=== PATIENT | female | born 1990 | race Caucasian/White ===

== ENCOUNTER → 2021-04-23 10:09 | Outpatient (CLI) | payer OTHER, SELFPAY ==
--- NOTE | ~2021-04-23 | US_ITS ---
US OB /maternal detail DATE: 04/23/2021 10:44 INDICATION: anatomy screen TECHNIQUE: Real-time imaging and Doppler analysis COMPARISON: None FINDINGS: Live single intrauterine gestation, fetus in vertex presentation, longitudinal lie. Anterior placenta, lower margin 4.4 cm above the internal os. Subjectively normal amount of amniotic fluid. No cerebral ventriculomegaly. The cerebellum, cisterna magna and nuchal fold appear gabe l. Upper lip appears normal. spine appears normal. Four-chamber heart with heart ra te of 157 bpm. Outflow tracts were not demonstrated due to position. diaphragm is intact. Fluid is demonstrated in the stomach and urinary bladder. kidn eys are unremarkable, without hydronephrosis. Three-vessel umbilical cord with normal insertion at abdominal wall. extremities are unremarkable. Biparietal diameter 4.52 cm; 19 weeks 5 days Head circumference 16.76 cm; 19 weeks 3 days Abdominal circumference 14.46 cm; 19 weeks 5 days Femur length 3.19 cm; 19 weeks 6 days Composite age by Hadlock formula is 19 weeks 5 days +/- 1 week 3 days; JAMES 09/22/2021 Estimated weight is 313.6 +/- 47 g. Head circumference/abdominal charge entry clerk was 1.16, within normal range of 1.0-1.26 Femur length/head circumference 19.01, within normal range of 16.60-19.37. IMPRESSION: Estimated gestational age of 19 weeks 5 days +/- 1 week 3 days; JAMES: 09/22/2021 Normal anatomy screen Reviewed, dictated and finalized at [facility]. Reviewed, dictated and finalized at [facility]. IMPRESSION: Estimated gestational age of 19 weeks 5 days +/- 1 week 3 days; JAMES : 09/22/2021 Normal anatomy screen
== END ==
PROVIDERS: Visit Provider Obstetrics & Gynecology Gynecology
DX: Z36.9 Encounter for antenatal screening, unspecified (principal); Z3A.19 19 weeks gestation of pregnancy
CPT/HCPCS: 76805

== ENCOUNTER 2021-09-09 08:07 | Inpatient (IN) | payer OTHER, SELFPAY ==
[2021-09-09] VITALS (152 sets, daily range): BP systolic 93–148; BP diastolic 20–110; PULSE 64–109; RESP 18; TEMP 36.9–37.9; O2SAT 99–100; BMI 30.8
--- NOTE | 2021-09-09 09:05 | LDADM ---
This patient, Stacey Kinney, was admitted to Labor/Delivery/Recovery 107 on 09/09/21 at 08:07. Plans for labor, pain management and were discussed with patient. Patient/family oriented to hospital policies and general routines including ID bracelet, bed and alarms, visiting hours, pain management, procedures, bathroom and other care routines, personal items, smoking policy, room service/diet and guest tray routines, security routines, and visiting hours. Patient/Family are encouraged to report perceived risks to care and to ask questions if they do not understand what they are told or what they should do. See OBIX for further documentation.
[2021-09-09 09:23] LABS: Basophils Percent Auto 0.5 % (0.2-1.2); Eosinophils Percent Auto 0.4 % (0-4.4); Hemoglobin 13.7 g/dL (12.0-15.0); Immature Granulocyte Percent A 1.2 % (0-0.5); Lymphocytes Absolute Auto 1.53 K/mm3 (0.9-3.2); Lymphocytes Percent Auto 18.1 % (18.3-44.2); Mean Corpuscular HGB Conc 35.1 g/dl (32-36); Mean Corpuscular Hemoglobin 35.1 pg (26-34); Mean Platelet Volume 10.9 fl (7.4-10.4); Monocytes Absolute Auto 0.6 K/mm3 (0.1-0.6); Monocytes Percent Auto 6.9 % (2.6-8.5); Neutrophils Absolute Auto 6.2 K/mm3 (1.3-6.7); Neutrophils Percent Auto 72.9 % (45.5-73.1); Platelet Count Result 159 k/mm3 (150-375); Red Cell Distribution Width 12.9 % (11.5-14.5); White Blood Count 8.5 K/mm3 (4.5-10.0)
[2021-09-09] MEDS: LACTATED RINGERS 1,000 ML 125 ML IV CONT ×3 (09:50→20:36)
[2021-09-09] MEDS: OXYTOCIN 30 UNITS/NS 500 ML 30 UNITS/500 ML BAG 4 UNITS IV CONT (09:52)
[2021-09-09 13:58] LABS: Rapid Plasma Reagin Non-Reactive (NonReactive)
--- NOTE | 2021-09-09 17:21 | WPDANESEPPF ---
Anes - Initial Pre Proc Eval Date/Time: 09/09/21 17:21 Surgeon: Lizz Meier MD Pre Op Diagnosis: Leaking Patient Data Age: 31 Gender: F Height: 1.65 m Weight: 84 kg Last Vital Signs Temp 37.3 C 09/09/21 16:12 Pulse 72 09/09/21 17:16 BP 124/70 09/09/21 17:16 Pulse Ox 100 09/09/21 17:18 Allergies Allergy/AdvReac Type Severity Reaction Status Date / Time No Known Allergies Allergy Mild Verified 11/17/10 05:12 Home Medications Medication Instructions Recorded Confirmed Type cholecalciferol (vitamin D3) 50 50 mcg PO DAILY 12/31/19 09/09/21 History mcg (2,000 unit) capsule cyanocobalamin (vitamin B-12) 1,000 mcg PO DAILY 12/31/19 09/09/21 History 1,000 mcg tablet prenat.vits,yonatan,lnu-cibb-xgala 1 tablet PO DAILY 12/15/20 09/09/21 History valacyclovir [Valtrex] 500 mg PO DAILY 08/21/21 08/21/21 History Laboratory Tests 09/09/21 09/09/21 09/09/21 08:52 08:52 08:52 WBC 8.5 K/mm3 K/mm3 (4.5-10.0) RBC 3.90 M/mm3 L M/mm3 (4.2-5.4) Hgb 13.7 g/dL g/dL (12.0-15.0) Hct 39.0 % % (37.0-47.0) MCV 100.0 fl fl (80-100) MCH 35.1 pg H pg (26-34) MCHC 35.1 g/dl g/dl (32-36) RDW 12.9 % % (11.5-14.5) Plt Count 159 k/mm3 k/mm3 (150-375) MPV 10.9 fl H fl (7.4-10.4) Immature Gran % (Auto) 1.2 % H % (0-0.5) Neut % (Auto) 72.9 % % (45.5-73.1) Lymph % (Auto) 18.1 % L % (18.3-44.2) Luce % (Auto) 6.9 % % (2.6-8.5) Eos % (Auto) 0.4 % % (0-4.4) Baso % (Auto) 0.5 % % (0.2-1.2) Lymph # (Auto) 1.53 K/mm3 K/mm3 (0.9-3.2) Luce # (Auto) 0.6 K/mm3 K/mm3 (0.1-0.6) Eos # (Auto) 0.0 K/mm3 K/mm3 (0-0.3) Baso # (Auto) 0.0 K/mm3 K/mm3 (0.0-0.1) Abs Immat Gran (auto) 0.10 K/mm3 H K/mm3 (0.00-0.031) Absolute Neuts (auto) 6.2 K/mm3 K/mm3 (1.3-6.7) Absolute Nucleated RBC 0.0 K/mm3 K/mm3 (0.0-0.012) Nucleated RBC % 0.0 % % (0.0-0.2) RPR Non-reactive (NonReactive) Blood Type O Positive Antibody Screen Negative Patient hx anesthesia problems: none Family hx anesthesia problems: none Results Review: All pre-operative results and documents have been reviewed as part of the pre-operative evaluation. [facility], [facility] Past Medical History Medical History (Updated 07/20/21 @ 11:00 by Eliel Wray MD) Acne vulgaris Acute non-recurrent maxillary sinusitis Anxiety Arthritis Chronic anxiety Chronic neck pain Exposure to COVID-19 virus Headache Tension headache, chronic Vitamin B12 deficiency anemia Vitamin D deficiency, unspecified Surgical History Surgical History (Updated 12/31/19 @ 08:31 by Paulette Nicole MA) H/O breast augmentation (~2011) Family History Family History Mother Chronic pain Father Skin cancer Grandparent Liver cancer Grandparent Malignant neoplasm of prostate Social History Social History (Updated 12/31/19 @ 08:34 by Paulette Nicole MA) Smoking status: Never smoker Second hand tobacco smoke exposure: No Alcohol intake: current Drinks per week: 3 Alcohol use details: wine/beer Substance use: never Substance use type: does not use Spiritual care concerns: No Anes - Eval Final PreProcedure Day of Procedure 09/09/21 17:21 Patient weight: obese Heart: regular rate and rhythm Lungs: clear to auscultation and normal air movement Airway: Mallampati scale class II Neurological: alert and oriented Last oral intake: >/= 8 hours ASA classification: II Emergent: no Anesthetic plan: proceed Anesthesia type and monitoring: regional epidural Results Review: All pre-operative results and documents have been reviewed as part of the pre-operative evaluation. Informed Con
[2021-09-09] MEDS: AMPICILLIN 2 GM/NS 100 ML 2 GM/100 ML BAG IVPB (20:48)
[2021-09-10] VITALS (33 sets, daily range): BP systolic 105–137; BP diastolic 53–112; PULSE 59–83; RESP 18–20; TEMP 36.8–37.2; O2SAT 100
--- NOTE | 2021-09-10 01:58 | PM.OBPRVD ---
OB - Delivery Note Procedure Delivery date: 09/10/21 Procedure: events: Labor Augmentation and Prolonged Rupture of Membrane Intrapartal events: None Delivery augmentation: pitocin Delivery monitor: external FHT and external uterine Route of delivery: Laceration Description: Periurethral and Perineal - 2nd Degree Delivery repair: vicryl (3-0 and 4-0 vicryl) Specimen: Yes (placenta) Quantitative Blood Loss (ml): 125 Anesthesia type: Epidural Disposition: floor Baby Date of : 09/10/21 Weeks of gestation at delivery: 39 Infant gender: Male presentation: vertex position: Right Occiput Anterior Placenta delivery description: Spontaneous cord vessel description: Nuchal Cord score one minute: 8 score five minutes: 9
--- NOTE | 2021-09-10 02:00 | PM.OBDSVD ---
DS: Admitting Diagnosis Discharge Date 09/11/21 Admitting Diagnosis SROM at 39 wk DS: Discharge Diagnosis Discharge Diagnosis (1) (normal spontaneous vaginal delivery): Code(s): O80 - Encounter for full-term uncomplicated delivery Status: Acute OB - DS: Summary OB Procedures : Ultrasound OB Procedures Intrapartum: Spontaneous Vag Delivery OB Procedures: : None Peripartum Data Infant Delivery Method: Natural Vaginal Laceration Description: Periurethral and Perineal - 2nd Degree complications: none Status at Discharge Functional status at discharge: independent ambulation Overall status at discharge: patient is progressing back to baseline Time Spent with Patient Time attestation: Total time spent providing and/or coordinating discharge services: DS: Data Data Completed and Pending Labs on day of discharge: Labs from last 24 hours 09/09/21 09/09/21 09/09/21 08:52 08:52 08:52 WBC 8.5 RBC 3.90 L Hgb 13.7 Hct 39.0 MCV 100.0 MCH 35.1 H MCHC 35.1 RDW 12.9 Plt Count 159 MPV 10.9 H Immature Gran % (Auto) 1.2 H Neut % (Auto) 72.9 Lymph % (Auto) 18.1 L Pike % (Auto) 6.9 Eos % (Auto) 0.4 Baso % (Auto) 0.5 Lymph # (Auto) 1.53 Pike # (Auto) 0.6 Eos # (Auto) 0.0 Baso # (Auto) 0.0 Abs Immat Gran (auto) 0.10 H Absolute Neuts (auto) 6.2 Absolute Nucleated RBC 0.0 Nucleated RBC % 0.0 RPR Non-reactive Blood Type O Positive Antibody Screen Negative Discharge Plan Discharge Attending physician on discharge: Lizz Meier Discharging Clinician: Khai Garcia Anticipated Discharge Date/Time: 09/11/21 02:01 Patient Disposition: Home, Self-Care Activity: may shower and pelvic rest Diet: regular Discharge Instructions: Education: Mom and Baby Guide Given to: Mother Follow-Up: Call your delivering provider's office for an appointment to be seen in: 6 Weeks Mom and [facility] the follow-up appointment. Appointment Date/Time: June 13, 2022 at 9:00 am What to expect at your follow-up visit: Physical Assessment Call [phone] if you are unable to keep your appointment time. BREAST CARE: * Wear a snug supportive bra. * For engorgement discomfort: Breast Feeding: * Apply warm moist washcloths * Express milk as needed to relieve engorgement * Wear loose clothing Bottle Feeding: * May apply ice packs * For sore nipples: * Identify correct latch-on * Apply warm moist washcloths before and after nursing * Air dry nipples after nursing * May apply Lansinoh cream to nipples EPISIOTOMY/PERINEAL CARE: * Until bleeding stops, use your abdi bottle after urinating * Change your pad frequently throughout the day * You may take sitz baths several times a day (fill your bathtub with warm water and soak for 20 minutes.) Do NOT bathe in the water * No tub baths until seen by your physician - You may shower ACTIVITY: * Rest as much as possible. * Do not exercise or lift anything heavier than your baby (such as laundry or other children.) * Avoid stairs or driving as much as possible. * Do not put anything into the vagina. No douching, tampons, or sexual activity until seen by physician. NOTIFY PHYSICIAN IF YOU HAVE ANY QUESTIONS OR IF ANY OF THE FOLLOWING SYMPTOMS OCCUR: * If your episiotomy or incision becomes red, swollen, or more painful than what you have experienced in the hospital. * If your vaginal bleeding becomes foul smelling. * If your vaginal bleeding becomes more heavy than a period or if your bleeding changes from pink to bright red. However, you may pass an occasional walnut-sized clot once or twice for the first week . * If you experience a sharp, shooting pain in you calves. * If you discover a hard, redde
[2021-09-10] MEDS: OXYTOCIN 30 UNITS/NS 500 ML 30 UNITS/500 ML BAG 125 UNITS IV CONT (02:20)
[2021-09-10] MEDS: IBUPROFEN 600 MG TABLET PO ×2 (03:25→11:52)
--- NOTE | 2021-09-10 04:52 | OBPPTRN ---
Patient transferred to post room #285 via wheelchair. Support person present. Oriented to unit, room, information board, rooming in, admission packet and security measures. Patient verbalizes understanding.
--- NOTE | 2021-09-10 11:25 | PC.NURSE ---
[id number] - Consulted with patient, reviewed infant feeding cues, frequencies, duration of feedings, feeding elimination flow sheet, and signs of adequate intake. Demonstrated stimulation techniques to wake infant for feeding. Assisted with infant to breast. Reviewed positioning/alignment, holding breast, asymmetrical latch on with a nipple shield due to ineffective latch with flat nipples. was able to latch correctly. Infant nursed eagerly, and with steady draws. Plan discussed to set up pumping every 3 hours. Nipple care reviewed. Pt has a plan to try to breastfeed but will be mostly pumping and feeding along with introducing formula for going back to work. Instructed mother to call out for RN assistance if she is unable to latch infant for feeding, she has discomfort with nursing and ready to be set up pumping. Instructed feeding should be initiated three hours from start of last feeding or if feeding cues are noted before. Mother voiced understanding of information shared.
[2021-09-10] MEDS: MULTIVIT/MIN/PREN/FOL AC/IRON TABLET 1 TAB PO (11:53)
[2021-09-11 00:02] VITALS: BP 112/68; PULSE 74; RESP 18; TEMP 36.7
--- NOTE | 2021-09-11 03:45 | PC.NURSE ---
Ambulated to Level II Nursery to visit .
[2021-09-11] MEDS: IBUPROFEN 600 MG TABLET PO (03:56)
[2021-09-11] MEDS: ACETAMINOPHEN 325 MG TABLET 650 MG PO (03:56)
[2021-09-11 04:18] LABS: Hematocrit 33.1 % (37.0-47.0); Hemoglobin 11.6 g/dL (12.0-15.0)
[2021-09-11 07:32] VITALS: BP 98/64; PULSE 76; RESP 16; TEMP 36.8; O2SAT 98
--- NOTE | 2021-09-11 08:51 | WPDANLDPN2 ---
Anes-Prog Note L&D Date/Time: 09/11/21 08:51 Comfortable throughout: labor and delivery Neuraxial method: epidural Epidural/Spinal procedure site: clean & non-tender Neuro status: Neuro function grossly intact. Cardiovascular status: normal Respiratory status: normal Airway patency: baseline Mental status: baseline Post-Op hydration status: normal Vital Signs: Last Vital Signs Temp 98.2 F 09/11/21 07:32 Pulse 76 09/11/21 07:32 Resp 16 09/11/21 07:32 BP 98/64 L 09/11/21 07:32 Pulse Ox 98 09/11/21 07:32 Pain score (VAS): 0 Post-procedural complaints: none Patient feedback: Patient satisfied with anesthetic care.
--- NOTE | 2021-09-11 09:37 | PM.OBDSVD ---
DS: Admitting Diagnosis Discharge Date 09/11/2021 Admitting Diagnosis OB - DS: Summary OB Procedures : None OB Procedures Intrapartum: Spontaneous Vag Delivery OB Procedures: : None Time Spent with Patient Time attestation: Total time spent providing and/or coordinating discharge services: DS: Data Data Completed and Pending Pending studies at discharge: Pending at discharge 09/10/21 01:40 Surgical [PTH] Routine Labs on day of discharge: Labs from last 24 hours 09/11/21 03:43 Hgb 11.6 L Hct 33.1 L Discharge Plan Discharge Attending physician on discharge: Lizz Meier Discharging Clinician: Khai Garcia Anticipated Discharge Date/Time: 09/11/21 02:01 Patient Disposition: Home, Self-Care Activity: may shower and pelvic rest Diet: regular Patient Instructions: Antibiotic Form Stand Alone Forms: General Discharge Information Follow-up/Referrals: Lizz Meier MD [Physician] - 6 Weeks Discharge Medications: New ibuprofen 600 mg Tablet 600 mg PO Q6H PRN (Reason: Cramping) Qty: 30 RF: 0 Continued cholecalciferol (vitamin D3) 50 mcg (2,000 unit) capsule 50 mcg PO DAILY RF: 0 cyanocobalamin (vitamin B-12) 1,000 mcg tablet 1,000 mcg PO DAILY RF: 0 prenat.vits,yonatan,lic-mbjk-cmwph Tablet 1 tablet PO DAILY RF: 0 valacyclovir [Valtrex] 500 mg Tablet 500 mg PO DAILY RF: 0 Date of admission: 09/09/21 08:07 Primary Care Provider: Eliel Wray Admitting Provider: Lizz Meier Attending physician on admission: Lizz Meier Condition: Stable
[2021-09-13 09:12] VITALS: BP 117/84; PULSE 91; RESP 20; TEMP 36.9; O2SAT 100
== END 2021-09-11 10:43 | disposition home or self-care (01) | DRG 806 ==
LOC: ANHLDR 09-14 07:34 → ANHOB2 09-14 07:34
PROVIDERS: Admitting Provider Obstetrics & Gynecology Gynecology; PCP Family Medicine; Visit Provider Obstetrics & Gynecology
DX: O42.92 Full-term premature rupture of membranes, unspecified as to length of time between rupture and onset of labor (principal); O98.52 Other viral diseases complicating childbirth; Z37.0 Single live birth; Z3A.39 39 weeks gestation of pregnancy; O36.8330 Maternal care for abnormalities of the fetal heart rate or rhythm, third trimester, not applicable or unspecified; O70.1 Second degree perineal laceration during delivery; O69.81X0 Labor and delivery complicated by cord around neck, without compression, not applicable or unspecified; O71.82 Other specified trauma to perineum and vulva; B00.9 Herpesviral infection, unspecified
CPT/HCPCS: 36415; 84112; 85014; 85018; 85025; 86592; 86850; 86900; 86901; 88307; A9270; J0131; J0290; J2590; J2795; J7120

== ENCOUNTER 2023-05-03 15:38 | Emergency (ER) | payer OTHER, SELFPAY ==
[2023-05-03 15:46] VITALS: BP 128/81; PULSE 53; RESP 16; TEMP 36.7; O2SAT 100
--- NOTE | 2023-05-03 16:10 | ED.URI ---
HPI - URI/Sore Throat General Chief Complaint: Upper Respiratory Infection Stated Complaint: Sore Throat,Congestion,Headache Time Seen by Provider: 05/03/23 16:10 History of Present Illness HPI Narrative: 32-year-old female presented for complaint of sore throat headache since yesterday. Denies cough, shortness of breath, wheezing nausea vomiting, diarrhea, fevers or chills. 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 She took Advil this morning for the headache pain. Related Data Home Medications Medication Instructions Recorded Confirmed sertraline 25 mg tablet 25 mg PO DAILY 02/13/23 05/03/23 levonorgestrel 21 mcg/24 hours (8 See Rx Instructions .Route .COMPLEX 05/03/23 05/03/23 yrs) 52 mg intrauterine device (Mirena) Allergies Allergy/AdvReac Type Severity Reaction Status Date / Time No Known Allergies Allergy Mild Verified 05/03/23 15:40 Review of Systems Review of Systems: CONSTITUTIONAL: Denies body aches, fever, chills, or sweats. EYES: Denies visual changes, redness, or discharge. ENT: Reports sore throat denies rhinorrhea, congestion, or otalgia. CARDIOVASCULAR: Denies chest pain, palpitations, or edema. RESPIRATORY: Denies dyspnea. GASTROINTESTINAL: Denies abdominal pain, nausea, vomiting, or diarrhea. SKIN: Denies rash, itching, or wounds. MUSCULOSKELETAL: Denies back pain, joint pain, or myalgia. NEUROLOGIC: Reports headache PMFSH Past Medical History Medical History Acne vulgaris Acute non-recurrent maxillary sinusitis Anxiety Arthritis Chronic anxiety Chronic neck pain Exposure to COVID-19 virus Headache Tension headache, chronic Vitamin B12 deficiency anemia Vitamin D deficiency, unspecified Surgical History Surgical History H/O breast augmentation (~2011) Family History Family History Mother Chronic pain Father Skin cancer Grandparent Liver cancer Grandparent Malignant neoplasm of prostate Social History Social History Smoking status: Never smoker Second hand tobacco smoke exposure: No Alcohol intake: current Alcohol use details: Socially Substance use: never Substance use type: does not use Lack of Transportation: No Lack of Food: Never True Current Housing: I Have Housing Concerned About Future Housing: No Difficulty Paying Gas/Electric Bills: No Difficulty Paying for Meds: No Currently Unemployed: No Education: Master's Degree or Higher Difficulty w/ Childcare or Family Care: No Spiritual care concerns: No Exam Narrative: GENERAL: well-appearing, no acute distress. EYES: conjunctivae clear ENT: Mucous membranes moist. TM pearly reyes with normal light reflex bilaterally; no tragal tenderness. Oropharynx erythematous without lesions. Tonsils enlarged 1+ and without exudate. No drooling, no hoarseness, no trismus, uvula midline. No tripod positioning, hot potato voice, or soft palate swelling. NECK: Supple. No lymphadenopathy CHEST: Clear to auscultation, breath sounds equal. No respiratory distress, speaks in full sentences. HEART: Regular rate and rhythm. No murmur heard. SKIN: Warm, dry, no rash. NEURO: Alert and oriented x3. Course Course Emergency Course: Patient is aware of diagnosis, understands and agrees to treatment plan. Anticipatory guidance given. Patient agrees to follow-up as directed and is aware of reasons to seek care at the emergency department. Portions of this record may have been created with voice recognition software Level of Care: Express Care Visit Vital Signs Vital signs: Vital Signs Temperature 98.1 F 05/03/23 15:46 Pulse Rate 53 L 05/03/23 15:46 Respiratory Rate 16 05/03/23 15:46 Blood Pressure 128/81
== END 2023-05-03 16:16 | disposition home or self-care (01) ==
PROVIDERS: Emergency Provider Nurse Practitioner Family; PCP Family Medicine
DX: B34.9 Viral infection, unspecified (principal); M19.90 Unspecified osteoarthritis, unspecified site; F41.9 Anxiety disorder, unspecified
CPT/HCPCS: 87081; 87880; 99213; G0463

== ENCOUNTER 2025-03-04 09:19 | Outpatient (CLI) | payer BC, SELFPAY ==
--- NOTE | ~2025-03-04 | CT_ITS ---
CT sinus wo con Ordering provider: David Cardenas MD History: . J30.2 - Other seasonal allergic rhinitis . Comparison: None. Technique: Thin slice Scans CT of the paranasal sinuses was performed with coronal and sagittal refor matted images. No IV contrast. . Automated exposure control and iterative reconstruction technique w ere employed. The dose-length product was 265.85 mGy-cm. Findings: NASAL SEPTUM: Mild right nasal septal deviation. OSTEOMEATAL UNITS: Bilaterally patent. NASAL TURBINATES AND NASOPHARYNX: Normal. Bilateral jan bullosa bullosa of the middle turbinates. PARANASAL SINUSES: Well aerated. VISUALIZED MASTOIDS: Normal as visualized. BONES: Normal. SUPERFICIAL SOFT TISSUES/VISUALIZED BRAIN PARENCHYMA: Normal. IMPRESSION: Mild right nasal septal deviation. Other appearances are unremarkable. Reviewed, dictated and finalized at location [facility].
== END 2025-03-04 09:20 | disposition home or self-care (01) ==
LOC: MICIMG 09:20
PROVIDERS: PCP Family Medicine; Visit Provider Otolaryngology
DX: J34.2 Deviated nasal septum (principal); J30.2 Other seasonal allergic rhinitis; G44.229 Chronic tension-type headache, not intractable; J32.9 Chronic sinusitis, unspecified
CPT/HCPCS: 70486

== ENCOUNTER 2025-03-13 10:20 | Outpatient (CLI) | payer BC, SELFPAY ==
--- OUTSIDE RECORDS SUMMARY | 2025-03-13 10:23 | XMS_ITS | Patient Health Record ---
Author Organization [facility] ([address]) Address [address] [place] [address] Care Team Providers Care Systems Auditor Name Role Phone HoangHimanshu Armaan [phone] Allergies No Known Allergies Reason For Referral No Information Medications Medication SIG (Take, Route, Frequency, Duration) Notes Start Date End Date Status Vitamin D3 10 MCG 2 TAB(S) ORALLY ONCE A DAY *Please review and pick correct strength-formulation from Albireo options. If intended option is not shown, discontinue and re-order from Quick Search* Active Sertraline HCl 50 MG 1 tab(s) orally once a day Active Problems Problem Type SNOMED Code ICD Code Onset Dates Problem Status W/U Status Risk Notes Problem Morbid obesity (disorder) (986085356) Morbid (severe) obesity due to excess calories (E66.01) Active confirmed Problem Malaise (249140926) Other malaise (R53.81) Active confirmed Problem Chronic fatigue syndrome (disorder) (33171584) Chronic fatigue, unspecified (R53.82) Active confirmed Problem Fatigue (45993268) Other fatigue (R53.83) Active confirmed Problem Abnormal weight gain (821624102) Abnormal weight gain (R63.5) Active confirmed Vital Signs Height 65.4 in 03/03/2025 Weight 141.8 lbs 03/03/2025 BMI 23.31 kg/m2 03/03/2025 Encounters Encounter Location Date Provider Diagnosis [facility] ([address]) [address] [place] [phone] 03/19/2024 Himanshu Bolton Chronic fatigue, unspecified R53.82 ; Abnormal weight gain R63.5 ; Other fatigue R53.83 and Other malaise R53.81 [facility] ([address]) [address] [place] [address] 04/02/2024 Himanshukatelynn Bolton Chronic fatigue, unspecified R53.82 ; Abnormal weight gain R63.5 ; Other fatigue R53.83 and Other malaise R53.81 [facility] [place] ([address]) [address] [place] [address] 04/09/2024 Himanshukatelynn Bolton Chronic fatigue, unspecified R53.82 ; Abnormal weight gain R63.5 ; Other fatigue R53.83 and Other malaise R53.81 [facility] [place] ([address]) [address] [place] [address] 04/24/2024 Himanshukatelynn Bolton Chronic fatigue, unspecified R53.82 ; Abnormal weight gain R63.5 ; Other fatigue R53.83 and Other malaise R53.81 [facility] [place] ([address]) [address] [place] [address] 05/13/2024 Himanshukatelynn Bolton Chronic fatigue, unspecified R53.82 ; Abnormal weight gain R63.5 ; Other fatigue R53.83 and Other malaise R53.81 [facility] [place] ([address]) [address] [place] [address] 05/27/2024 Himanshu Bolton Chronic fatigue, unspecified R53.82 ; Abnormal weight gain R63.5 ; Other fatigue R53.83 and Other malaise R53.81 [facility] [place] ([address]) [address] [place] [address] 05/27/2024 Himanshu Hoang [facility] [place] ([address]) [address] [place] [address] 06/20/2024 Himanshu Bolton Chronic fatigue, unspecified R53.82 ; Abnormal weight gain R63.5 ; Other fatigue R53.83 and Other malaise R53.81 [facility] [place] ([address]) [address] [place] [address] 07/08/2024 Himanshu Hoang Chronic fatigue, unspecified R53.82 ; Abnormal weight gain R63.5 ; Other fatigue R53.83 and Other malaise R53.81 [facility] [place] ([address]) [address] [place] [address] 08/22/2024 Himnashu Bolton [facility] [place] ([address]) [address] [place] [address] 08/22/2024 Himanshu Bolton [facility] [place] ([address]) [address] [place] [address] 08/22/2024 Himanshukatelynn Bolton Chronic fatigue, unspecified R53.82 ; Abnormal weight gain R63.5 ; Other fatigue R53.83 and Other malaise R53.81 [facility] [place] ([address]) [address] [place] [address] 09/05/2024 Himanshu Hoang Chronic fatigue, unspecified R53.82 ; Abnormal weight gain R63.5 ; Other fatigue R53.83 and Other malaise R53.81 [facility] [place] ([address]) [address] [place] [address] 09/19/2024 Himanshu Hoang Chronic fatigue, unspecified R53.82 ; Abnormal weight gain R63.5 ; Other fatigue R53.83 and Other malaise R53.81 [facility] [place] ([address]) [address] [place] [address] 11/06/2024 Himanshukatelynn Bolton Chronic fatigue, unspecified R53.82 ; Abnormal weight gain R63.5 ; Other fatigue R53.83 and Other malaise R53.81 [facility] [place] ([address]) [address] [place] [address] 11/06/2024 Himanshu Bolton [facility] [place] ([address]) [address] [place] [address] 11/14/2024 Himanshu Bolton Chronic fatigue, unspecified R53.82 ; Abnormal weight gain R63.5 ; Other fatigue R53.83 and Other malaise R53.81 [facility] ([address]) [address] [place] [address] 12/05/2024 Himanshu Hoang Chronic fatigue, unspecified R53.82 ; Abnormal weight gain R63.5 ; Other fatigue R53.83 and Other malaise R53.81 [facility] ([address]) [address] [place] [address] 12/12/2024 Himanshu Win Chronic fatigue, unspecified R53.82 ; Abnormal weight gain R63.5 ; Other fatigue R53.83 and Other malaise R53.81 [facility] ([address]) [address] [place] [address] 12/19/2024 Himanshu Hoang Chronic fatigue, unspecified R53.82 ; Abnormal weight gain R63.5 ; Other fatigue R53.83 and Other malaise R53.81 [facility] ([address]) [address] [place] [address] 01/02/2025 Himanshukatelynn Bolton Chronic fatigue, unspecified R53.82 ; Abnormal weight gain R63.5 ; Other fatigue R53.83 and Other malaise R53.81 [facility] ([address]) [address] [place] [address] 01/16/2025 Himanshu Win Chronic fatigue, unspecified R53.82 ; Abnormal weight gain R63.5 ; Other fatigue R53.83 and Other malaise R53.81 [facility] ([address]) [address] [place] [address] 02/03/2025 Himanshukatelynn Bolton Chronic fatigue, unspecified R53.82 ; Abnormal weight gain R63.5 ; Other fatigue R53.83 and Other malaise R53.81 [facility] ([address]) [address] [place] [address] 02/17/2025 Himanshu Win Chronic fatigue, unspecified R53.82 ; Abnormal weight gain R63.5 ; Other fatigue R53.83 and Other malaise R53.81 [facility] [place] ([address]) [address] [place] [address] 03/03/2025 Himanshu Win Chronic fatigue, unspecified R53.82 ; Abnormal weight gain R63.5 ; Other fatigue R53.83 and Other malaise R53.81 [facility] [place] ([address]) [address] [place] [address] 03/26/2024 Himanshu Win Chronic fatigue, unspecified R53.82 ; Abnormal weight gain R63.5 ; Other fatigue R53.83 and Other malaise R53.81 [facility] [place] ([address]) [address] [place] [address] 04/16/2024 Himanshu Win Chronic fatigue, unspecified R53.82 ; Abnormal weight gain R63.5 ; Other fatigue R53.83 and Other malaise R53.81 [facility] [place] ([address]) [address] [place] [address] 05/01/2024 Himanshu Win Chronic fatigue, unspecified R53.82 ; Abnormal weight gain R63.5 ; Other fatigue R53.83 and Other malaise R53.81 [facility] [place] ([address]) [address] [place] [address] 05/01/2024 Himanshu Hoang [facility] [place] ([address]) [address] [place] [address] 2024 Himanshu Win Chronic fatigue, unspecified R53.82 ; Abnormal weight gain R63.5 ; Other fatigue R53.83 and Other malaise R53.81 [facility] ([address]) [address] [place] [address] 07/31/2024 Himanshu Win Chronic fatigue, unspecified R53.82 ; Abnormal weight gain R63.5 ; Other fatigue R53.83 and Other malaise R53.81 [facility] [place] ([address]) [address] [address] 08/14/2024 Himanshu Hoang Chronic fatigue, unspecified R53.82 ; Abnormal weight gain R63.5 ; Other fatigue R53.83 and Other malaise R53.81 Assessments Encounter Date Diagnosis (ICD Code) Assessment Notes Treatment Notes Treatment Clinical Notes Section Notes 03/19/2024 Chronic fatigue, unspecified (ICD-10 - R53.82) 03/19/2024 Abnormal weight gain (ICD-10 - R63.5) 03/26/2024 Chronic fatigue, unspecified (ICD-10 - R53.82) 03/26/2024 Abnormal weight gain (ICD-10 - R63.5) 04/02/2024 Chronic fatigue, unspecified (ICD-10 - R53.82) 04/02/2024 Abnormal weight gain (ICD-10 - R63.5) 04/09/2024 Chronic fatigue, unspecified (ICD-10 - R53.82) 04/09/2024 Abnormal weight gain (ICD-10 - R63.5) 04/16/2024 Chronic fatigue, unspecified (ICD-10 - R53.82) 04/16/2024 Abnormal weight gain (ICD-10 - R63.5) 04/24/2024 Chronic fatigue, unspecified (ICD-10 - R53.82) 04/24/2024 Abnormal weight gain (ICD-10 - R63.5) 05/01/2024 Chronic fatigue, unspecified (ICD-10 - R53.82) 05/01/2024 Abnormal weight gain (ICD-10 - R63.5) 05/13/2024 Chronic fatigue, unspecified (ICD-10 - R53.82) 05/13/2024 Abnormal weight gain (ICD-10 - R63.5) 05/27/2024 Chronic fatigue, unspecified (ICD-10 - R53.82) 05/27/2024 Abnormal weight gain (ICD-10 - R63.5) 06/20/2024 Chronic fatigue, unspecified (ICD-10 - R53.82) 06/20/2024 Abnormal weight gain (ICD-10 - R63.5) 07/08/2024 Chronic fatigue, unspecified (ICD-10 - R53.82) 07/08/2024 Abnormal weight gain (ICD-10 - R63.5) 2024 Chronic fatigue, unspecified (ICD-10 - R53.82) 2024 Abnormal weight gain (ICD-10 - R63.5) 07/31/2024 Chronic fatigue, unspecified (ICD-10 - R53.82) 07/31/2024 Abnormal weight gain (ICD-10 - R63.5) 08/14/2024 Chronic fatigue, unspecified (ICD-10 - R53.82) 08/14/2024 Abnormal weight gain (ICD-10 - R63.5) 08/22/2024 Chronic fatigue, unspecified (ICD-10 - R53.82) 08/22/2024 Abnormal weight gain (ICD-10 - R63.5) 09/05/2024 Chronic fatigue, unspecified (ICD-10 - R53.82) 09/05/2024 Abnormal weight gain (ICD-10 - R63.5) 09/19/2024 Chronic fatigue, unspecified (ICD-10 - R53.82) 09/19/2024 Abnormal weight gain (ICD-10 - R63.5) 11/06/2024 Chronic fatigue, unspecified (ICD-10 - R53.82) 11/06/2024 Abnormal weight gain (ICD-10 - R63.5) 11/14/2024 Chronic fatigue, unspecified (ICD-10 - R53.82) 11/14/2024 Abnormal weight gain (ICD-10 - R63.5) 12/05/2024 Chronic fatigue, unspecified (ICD-10 - R53.82) 12/05/2024 Abnormal weight gain (ICD-10 - R63.5) 12/12/2024 Chronic fatigue, unspecified (ICD-10 - R53.82) 12/12/2024 Abnormal weight gain (ICD-10 - R63.5) 12/19/2024 Chronic fatigue, unspecified (ICD-10 - R53.82) 12/19/2024 Abnormal weight gain (ICD-10 - R63.5) 01/02/2025 Chronic fatigue, unspecified (ICD-10 - R53.82) 01/02/2025 Abnormal weight gain (ICD-10 - R63.5) 01/16/2025 Chronic fatigue, unspecified (ICD-10 - R53.82) 01/16/2025 Abnormal weight gain (ICD-10 - R63.5) 02/03/2025 Chronic fatigue, unspecified (ICD-10 - R53.82) 02/03/2025 Abnormal weight gain (ICD-10 - R63.5) 02/17/2025 Chronic fatigue, unspecified (ICD-10 - R53.82) 02/17/2025 Abnormal weight gain (ICD-10 - R63.5) 03/03/2025 Chronic fatigue, unspecified (ICD-10 - R53.82) 03/03/2025 Abnormal weight gain (ICD-10 - R63.5) 03/03/2025 Other fatigue (ICD-10 - R53.83) 02/17/2025 Other fatigue (ICD-10 - R53.83) 02/03/2025 Other fatigue (ICD-10 - R53.83) 01/16/2025 Other fatigue (ICD-10 - R53.83) 01/02/2025 Other fatigue (ICD-10 - R53.83) 12/19/2024 Other fatigue (ICD-10 - R53.83) 12/12/2024 Other fatigue (ICD-10 - R53.83) 12/05/2024 Other fatigue (ICD-10 - R53.83) 11/14/2024 Other fatigue (ICD-10 - R53.83) 11/06/2024 Other fatigue (ICD-10 - R53.83) 09/19/2024 Other fatigue (ICD-10 - R53.83) 09/05/2024 Other fatigue (ICD-10 - R53.83) 08/22/2024 Other fatigue (ICD-10 - R53.83) 08/14/2024 Other fatigue (ICD-10 - R53.83) 07/31/2024 Other fatigue (ICD-10 - R53.83) 2024 Other fatigue (ICD-10 - R53.83) 07/08/2024 Other fatigue (ICD-10 - R53.83) 06/20/2024 Other fatigue (ICD-10 - R53.83) 05/27/2024 Other fatigue (ICD-10 - R53.83) 05/13/2024 Other fatigue (ICD-10 - R53.83) 05/01/2024 Other fatigue (ICD-10 - R53.83) 04/24/2024 Other fatigue (ICD-10 - R53.83) 04/16/2024 Other fatigue (ICD-10 - R53.83) 04/09/2024 Other fatigue (ICD-10 - R53.83) 04/02/2024 Other fatigue (ICD-10 - R53.83) 03/26/2024 Other fatigue (ICD-10 - R53.83) 03/19/2024 Other fatigue (ICD-10 - R53.83) 03/19/2024 Other malaise (ICD-10 - R53.81) 03/26/2024 Other malaise (ICD-10 - R53.81) 04/02/2024 Other malaise (ICD-10 - R53.81) 04/09/2024 Other malaise (ICD-10 - R53.81) 04/16/2024 Other malaise (ICD-10 - R53.81) 04/24/2024 Other malaise (ICD-10 - R53.81) 05/01/2024 Other malaise (ICD-10 - R53.81) 05/13/2024 Other malaise (ICD-10 - R53.81) 05/27/2024 Other malaise (ICD-10 - R53.81) 06/20/2024 Other malaise (ICD-10 - R53.81) 07/08/2024 Other malaise (ICD-10 - R53.81) 2024 Other malaise (ICD-10 - R53.81) 07/31/2024 Other malaise (ICD-10 - R53.81) 08/14/2024 Other malaise (ICD-10 - R53.81) 08/22/2024 Other malaise (ICD-10 - R53.81) 09/05/2024 Other malaise (ICD-10 - R53.81) 09/19/2024 Other malaise (ICD-10 - R53.81) 11/06/2024 Other malaise (ICD-10 - R53.81) 11/14/2024 Other malaise (ICD-10 - R53.81) 12/05/2024 Other malaise (ICD-10 - R53.81) 12/12/2024 Other malaise (ICD-10 - R53.81) 12/19/2024 Other malaise (ICD-10 - R53.81) 01/02/2025 Other malaise (ICD-10 - R53.81) 01/16/2025 Other malaise (ICD-10 - R53.81) 02/03/2025 Other malaise (ICD-10 - R53.81) 02/17/2025 Other malaise (ICD-10 - R53.81) 03/03/2025 Other malaise (ICD-10 - R53.81) Plan Of Treatment Next Appt Details Provider Name:Himanshu HIbis Bolton , 03/18/2025 09:00:00 AM, [address], [place] [address], [place], [address],
--- OUTSIDE RECORDS SUMMARY | 2025-03-13 10:23 | XMS_ITS | Encounter Summary ---
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 Gender Identity Not on file Sexual Orientation Not on file documented as of this encounter Plan of Treatment Upcoming Encounters Date Type Department Care Team (Late st Contact Info) Description 05/08/2025 9:00 AM CDT Office Visit [facility] - Neurology [address] [place] [address], [place] [id number] Carlos Eduardo [place], HOSPITAL FELLOW-INSIDE SALES ACCOUNT REPRESENTATIVE [address] [place] [address] [place] [phone] documented as of this encounter Visit Diagnoses Not on filedocumented in this encounter Care Teams Bobbin Cleaner Relationship Specialty Start Date End Date Eliel Wray MD [address] [place] [address] PCP - General 09/14/21 documented as of this encounter
--- OUTSIDE RECORDS SUMMARY | 2025-03-13 10:23 | XMS_ITS ---
Author Organization [employer] [place] ([address] Address [address] [place] [address] Care Team Providers Care Corporate Quality Assurance Manager Name Role Phone HoangHimanshu [phone] REASON FOR VISIT [facility], on Tirzepatide, no side effects, starting weekly doses, adequate appetite suppression, Desired weight loss: 30-35 lbs, -1.2 lbs since last visit, -30.6 lbs total, No history MTC or MEN2 or pancreatitis, Concerned about future DM and OA Medications Medication SIG (Take, Route, Frequency, Duration) Notes Start Date End Date Status Sertraline HCl 50 MG 1 tab(s) orally once a day Active Vitamin D3 10 MCG 2 TAB(S) ORALLY ONCE A DAY *Please review and pick correct strength-formulation from Medispan options. If intended option is not shown, discontinue and re-order from Quick Search* Active Vital Signs Height 65.4 in 02/03/2025 Weight 140.4 lbs 02/03/2025 BMI 23.08 kg/m2 02/03/2025 Encounters Encounter Location Date Provider Diagnosis Formerly [facility] [employer] [place] ([address]) [address] [place] [address] 02/03/2025 Himanshu Bolton Chronic fatigue, unspecified R53.82 ; Abnormal weight gain R63.5 ; Other fatigue R53.83 and Other malaise R53.81 Assessments Encounter Date Diagnosis (ICD Code) Assessment Notes Treatment Notes Treatment Clinical Notes Section Notes 02/03/2025 Chronic fatigue, unspecified (ICD-10 - R53.82) 02/03/2025 Abnormal weight gain (ICD-10 - R63.5) 02/03/2025 Other fatigue (ICD-10 - R53.83) 02/03/2025 Other malaise (ICD-10 - R53.81) Plan Of Treatment Next Appt Details Follow Up: 1 Week, Reason: G LP-1 Agonist Administration Provider Name:Himanshu Caldwell Hoang , 03/18/2025 09:00:00 AM, [address], [address], [address], Procedure Notes * Category Sub-Category Detail Notes [facility]: Weight Management tirzepatide Indication: main tenance (keep weight off) Concentration: 10 mg/mL Volume Administered: 0.35 mL Dose Administered: 3.5 mg Route: SQ Location: Right abdomen Frequency: weekly Lot Number/Expiration: Medication Source: [facility] Adverse Reaction: None Progress Notes * Dain KINNEYB:1990 ( 34 yo F)Acc No.[id number]:02/03/2025 Weight Loss Patient: Son LOPEZS Stacey Provider: Carlos A Bolton MD :1990 A ge:34 Y S ex:Female Date:02/03/2025 Address[facility] [place], [place] [address] [place] [address] Subjective: * Chief Complaints: * 1 . [facility], on Tirzepatide, no side effects, starting weekly doses, adequate appetite suppression. 2. Desired weight loss: 30-35 lbs, -1.2 lbs since last visit, -30.6 lbs total. 3. No history MTC or MEN2 or pancreatitis. 4. Concerned about future DM and OA. * Medical History: * Medications: T aking Vitamin D3 10 MCG TABLET 2 TAB(S) ORALLY ONCE A DAY , Notes to Pharmacist: *Please review and pick correct strength-formulation from Medispan options. If intended option is not shown, discontinue and re-order from Quick Search*, Taking Sertraline HCl 50 MG Tablet 1 tab(s) orally once a day Objective: * Vitals: H t: 65.4 in, Wt:140.4lbs, BMI:23.08Index. Assessment: * Assessment: 1. A bnormal weight gain - R63.5 (Primary) 2 . C hronic fatigue, unspecified - R53.82 3 . O ther fatigue - R53.83 4 . O ther malaise - R53.81 Plan: * Treatment: * Procedures: [facility]: Weight Management: tirzepatide I ndication m aintenance (keep weight off) C oncentration 1 0 mg/mL V olume Administered 0 .35 mL D ose Administered 3 .5 mg R oute S Q L ocation R ight abdomen F requency w eekly L ot Number/Expiration 0 M edication Source [facility] A dverse Reaction N one * Follow Up: 1 Week (Reason: GLP-1 Agonist Administration) * Billing Information: * Visit Code: * Procedure Codes: 23572 [facility] - Weekly (tirzepatide) (0.5-5 mg) Tier 1. * Electronic signature of Patcyn Bolton MD, FAAAAI on 03/13/2025 at 10:23 AM CDT Sign off status: Pending * Provider: Carlos A Bolton MD Date: 0 02/03/2025 Generated for Marlenei shorty/Victorina/eTfidencioitting on: 0 03/13/2025 10:23 AM CDT
--- OUTSIDE RECORDS SUMMARY | 2025-03-13 10:23 | XMS_ITS ---
Author Organization [employer] [place] ([address]) Address [address] [place] [address] Care Team Providers Care Trimmer Press Clippings Name Role Phone HoangHimanshu [phone] REASON FOR VISIT [facility], on Tirzepatide, no side effects, starting weekly doses, adequate appetite suppression, Desired weight loss: 30-35 lbs, -0.0 lbs since last visit, -30.6 lbs total, [...] Search* Active Vital Signs Height 65.4 in 02/17/2025 Weight 140.4 lbs 02/17/2025 BMI 23.08 kg/m2 02/17/2025 Encounters Encounter Location Date Provider Diagnosis [facility] [place] ([address]) [address] [place] [address] 02/17/2025 Himanshu Botlon Chronic fatigue, unspecified R53.82 ; Abnormal weight gain R63.5 ; Other fatigue R53.83 and Other malaise R53.81 Assessments Encounter Date Diagnosis (ICD Code) Assessment Notes Treatment Notes Treatment Clinical Notes Section Notes 02/17/2025 Chronic fatigue, unspecified (ICD-10 - R53.82) 02/17/2025 Abnormal weight gain (ICD-10 - R63.5) 02/17/2025 Other fatigue (ICD-10 - R53.83) 02/17/2025 Other malaise (ICD-10 - R53.81) Plan Of Treatment Next Appt Details Follow Up: 1 Week, Reason: G LP-1 Agonist Administration Provider Name:Himanshu Caldwell Hoang , 03/18/2025 09:00:00 AM, [address], [address], [address], Procedure Notes * Category Sub-Category Detail Notes [facility]: Weight Management tirzepatide Indication: main tenance (keep weight off) Concentration: 10 mg/mL Volume Administered: 0.35 mL Dose Administered: 3.5 mg Route: SQ Location: Right abdomen Frequency: weekly Lot Number/Expiration: Medication Source: [facility] Adverse Reaction: None Progress Notes * Dain KINNEYB:1990 ( 34 yo F)Acc No.[id number]:02/17/2025 Weight Loss Patient: Son SANTOS Stacey Provider: Carlos A Bolton MD :1990 A ge:34 Y S ex:Female Date:02/17/2025 Address:[address] [place] [address], [place] [address] Subjective: * Chief Complaints: * 1 . [facility], on Tirzepatide, no side effects, starting weekly doses, adequate appetite suppression. 2. Desired weight loss: 30-35 lbs, -0.0 lbs since last visit, -30.6 lbs total. [...] Objective: * Vitals: H t: 65.4 in, Wt: 140.4 lbs, BMI:23.08Index. Assessment: * Assessment: 1. A bnormal [...] ot Number/Expiration 0 M edication Source H [facility] A dverse Reaction N one * Follow Up: 1 Week (Reason: GLP-1 Agonist Administration) * Billing Information: * Visit Code: * Procedure Codes: 73478 [facility] - Weekly (tirzepatide) (0.5-5 mg) Tier 1. * Electronic signature of Patcyn Bolton MD, FAAAAI on 03/13/2025 at 10:23 AM CDT Sign off status: Pending * Provider: Carlos A Bolton MD Date: 0 02/17/2025 Generated for Marlenei shorty/Victroina/eTfidencioitting on: 0 03/13/2025 10:23 AM CDT
--- OUTSIDE RECORDS SUMMARY | 2025-03-13 10:23 | XMS_ITS | Clinical Summary ---
Author Organization [facility] Address [address] [place] [address] Care Team Providers Care Senior Software Test Engineer Name Role Phone Eliel [place] MD Primary Care Provider [phone] Source Comments [facility],non-owned Affiliates and Associated Physician Practices is amultiple site organization consisting of ambulatory clinics and hospital sitesin [place], [place], [place] and [place]. This disclosure is being madepursuant to the Care Everywhere program and may not contain all information available regarding this patient. 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 Gender Identity Not on file Sexual Orientation Not on file Plan of Treatment Upcoming Encounters Date Type Department Care Team (Late st Contact Info) Description 05/08/2025 9:00 AM CDT Office Visit [facility] - Neurology [address] [place] [address], [place] [id number] Carlos Eduardo Conde, ELECTRIC BLASTING CAP ASSEMBLER-SHIPYARD PAINTER HELPER [address] [place] [address] [place] [id number] Health Maintenance Due Date Last Done Comments HIV SCREENING 2003 HEPATITIS C SCREENING 07/14/2006 DTAP/TDAP/TD VACCINES (1 - Tdap) 2007 HEPATITIS B VACCINE (1 of 3 - 19+ 3-dose series) 2007 HPV VACCINE (1 - 3-dose SCDM series) 2015 COVID-19 VACCINE (1 - 2023-2 5 season) 2024 DEPRESSION SCREENING 09/04/2024 INFLUENZA VACCINE (#1) 2025 ZOSTER VACCINE (1 of 2) 2038 HIB VACCINE Aged Out No longer eligi ble based on patient's age to complete this topic MENINGOCOCCAL (Group B) VACC INE SHARED DECISION-MAKING Aged Out No longer eligibl e based on patient's age to complete this topic MENINGOCOCCAL GROUPS A/C/Y/W VACCINE Aged Out No longer eligible b ased on patient's age to complete this topic PNEUMOCOCCAL VACCINE Aged Out No long er eligible based on patient's age to complete this topic Insurance [facility] [place] [address] [place] [address] [place] [address] Care Teams Senior Software Test Engineer Relationship Specialty Start Date End Date Eliel [place] MD [address] [facility] [address] [place] [address] PCP - General 09/14/21
--- OUTSIDE RECORDS SUMMARY | 2025-03-13 10:24 | XMS_ITS ---
Author Organization [employer] [facility] [place] ([address]) Address [address] [place] [phone] Care Team Providers Care Voice And Data Technician Name Role Phone HoangHimanshu [phone] REASON FOR VISIT [facility], on Tirzepatide, no side effects, starting weekly doses, adequate appetite suppression, Desired weight loss: 30-35 lbs, +1.4 lbs since last visit, -29.2 lbs total, No history MTC or MEN2 [...] 1 tab(s) orally once a day Active Vital Signs Height 65.4 in 03/03/2025 Weight 141.8 lbs 03/03/2025 BMI 23.31 kg/m2 03/03/2025 Encounters Encounter Location Date Provider Diagnosis [facility] [place] ([address]) [address] [place] [phone] 03/03/2025 Himanshu Bolton Chronic fatigue, unspecified R53.82 ; Abnormal weight gain R63.5 ; Other fatigue R53.83 and Other malaise R53.81 Assessments Encounter Date Diagnosis (ICD Code) Assessment Notes Treatment Notes Treatment Clinical Notes Section Notes 03/03/2025 Chronic fatigue, unspecified (ICD-10 - R53.82) 03/03/2025 Abnormal weight gain (ICD-10 - R63.5) 03/03/2025 Other fatigue (ICD-10 - R53.83) 03/03/2025 Other malaise (ICD-10 - R53.81) Plan Of Treatment Next Appt Details Follow Up: 1 Week, Reason: G LP-1 Agonist Administration Provider Name:Himanshu Caldwell Hoang , 03/18/2025 09:00:00 AM, [address], [address], [address], Procedure Notes * Category Sub-Category Detail Notes [facility]: Weight Management tirzepatide Indication: main tenance (keep weight off) Concentration: 10 mg/mL Volume Administered: 0.35 mL Dose Administered: 3.5 mg Route: SQ Location: Left abdomen Frequency: weekly Lot Number/Expiration: Medication Source: [facility] Adverse Reaction: None Progress Notes * Dain SMALLB:1990 ( 34 yo F)Acc No.[id number]:03/03/2025 Weight Loss Patient: Son SANTOS Stacey Provider: Carlos A Bolton MD :1990 A ge:34 Y S ex:Female Date:03/03/2025 Address:[address] [place], [place] [address] [place] [address] Subjective: * Chief Complaints: * 1 . [facility], on Tirzepatide, no side effects, starting weekly doses, adequate appetite suppression. 2. Desired weight loss: 30-35 lbs, +1.4 lbs since last visit, -29.2 lbs total. 3. No history MTC or [...] Objective: * Vitals: H t: 65.4 in, Wt:141.8lbs, BMI:23.31Index. Assessment: * Assessment: 1. A bnormal weight [...] mg R oute S Q L ocation L eft abdomen F requency w eekly L ot Number/Expiration 0 M edication Source H [facility] A dverse Reaction N one * Follow Up: 1 Week (Reason: GLP-1 Agonist Administration) * Billing Information: * Visit Code: * Procedure Codes: 64694 [facility] - Weekly (tirzepatide) (0.5-5 mg) Tier 1. * Electronic signature of Patcyn Bolton MD, FAAAAI on 03/13/2025 at 10:23 AM CDT Sign off status: Pending * Provider: Carlos A Bolton MD Date: 0 03/03/2025 Generated for Marlenei shorty/Victorina/eTviancasmitting on: 0 03/13/2025 10:23 AM CDT
== END 2025-03-13 10:21 | disposition home or self-care (01) ==
LOC: ANHAUDIO 10:20
PROVIDERS: PCP Family Medicine; Visit Provider Otolaryngology
DX: H90.A21 Sensorineural hearing loss, unilateral, right ear, with restricted hearing on the contralateral side (principal); R42 Dizziness and giddiness; H93.11 Tinnitus, right ear
CPT/HCPCS: 92557; 92567

== ENCOUNTER 2025-06-09 06:47 | Outpatient (CLI) | payer BC, SELFPAY ==
--- OUTSIDE RECORDS SUMMARY | 2025-04-22 11:00 | XMS_ITS ---
Author Organization [facility] [place] ([address]) Address [address] [place] [address] Care Team Providers Care Medical Assembly Name Role Phone HoangHimanshu [phone] REASON FOR VISIT [facility], on Tirzepatide, no side effects, starting weekly doses, adequate appetite suppression, Desired weight loss: 30-35 lbs, 0.0 lbs change since last visit, -26.2 lbs total, No history MTC or MEN2 or pancreatitis, Concerned about future DM and OA Encounters Encounter Location Date Provider Diagnosis [facility] [place] ([address]) [address] [place] [address] 04/22/2025 Himanshu Bolton Chronic fatigue, unspecified R53.82 ; Abnormal weight gain R63.5 ; Other fatigue R53.83 and Other malaise R53.81 Assessments Encounter Date Diagnosis (ICD Code) Assessment Notes Treatment Notes Treatment Clinical Notes Section Notes 04/22/2025 Chronic fatigue, unspecified (ICD-10 - R53.82) 04/22/2025 Abnormal weight gain (ICD-10 - R63.5) 04/22/2025 Other fatigue (ICD-10 - R53.83) 04/22/2025 Other malaise (ICD-10 - R53.81) Plan Of Treatment Next Appt Details Follow Up: 1 Week, Reason: G LP-1 Agonist Administration Provider Name:Himanshu Bolton , 06/19/2025 04:00:00 PM, [address], [facility] [address], [place], [address], Provider Name:Himanshu Caldwell Hoang , 07/09/2025 04:00:00 PM, [address], [address], [address], Procedure Notes * Category Sub-Category Detail Notes [facility]: Weight Management tirzepatide Indication: main tenance (keep weight off) Concentration: 10 mg/mL Volume Administered: 0.4 mL Dose Administered: 4 mg Route: SQ Location: Left abdomen Frequency: weekly Lot Number/Expiration: Medication Source: [facility] Adverse Reaction: None Progress Notes * Gurinder KINNEYaDOB:1990 ( 34 yo F)Acc No.[id number]:04/22/2025 Weight Loss Patient: Stacey SHANNON Provider: Carlos A Bolton MD :1990 A ge:34 Y S ex:Female Date:04/22/2025 Address:[address] [place] [address] Subjective: * Chief Complaints: * 1 . [facility], on Tirzepatide, no side effects, starting weekly doses, adequate appetite suppression. 2. Desired weight loss: 30-35 lbs, 0.0 lbs change since last visit, -26.2 lbs total. 3. No history MTC or MEN2 or pancreatitis. 4. Concerned about future DM and OA. * Medical History: Objective: * Vitals: Assessment: * Assessment: 1. A bnormal weight gain - R63.5 (Primary) 2 . C hronic fatigue, unspecified - R53.82 3 . O ther fatigue - R53.83 4 . O ther malaise - R53.81 Plan: * Treatment: * Procedures: Q uell: Weight Management: tirzepatide I ndication m aintenance (keep weight off) C oncentration 1 0 mg/mL V olume Administered 0 .4 mL D ose Administered 4 mg R oute S Q L ocation L eft abdomen F requency w eekly L ot Number/Expiration 1 M edication Source H [facility] A dverse Reaction N one * Follow Up: 1 Week (Reason: GLP-1 Agonist Administration) * Billing Information: * Visit Code: * Procedure Codes: 95863 [facility] - Weekly (tirzepatide) (0.5-5 mg) Tier 1. * Electronic signature of Quinten Bolton MD, FAAAAI on 06/09/2025 at 06:51 AM CDT Sign off status: Pending * Provider: Carlos A Bolton MD Date: 0 04/22/2025 Generated for Juan oro/Victorina/Rosana on: 1 06:51 AM CDT
--- OUTSIDE RECORDS SUMMARY | 2025-04-28 11:00 | XMS_ITS ---
Author Organization [facility] [place] ([address]) Address [address] [place] [address] Care Team Providers Care Tar Man Name Role Phone HoangHimanshu [phone] REASON FOR VISIT [facility], on Tirzepatide, no side effects, starting weekly doses, adequate appetite suppression, Desired weight loss: 30-35 lbs, +2.9 lbs change since last visit, -26.2 lbs total, Nohistory MTC or MEN2 or pancreatitis, Concerned about [...] day Active Vital Signs Height 65.4 in 04/28/2025 Weight 146.0 lbs 04/28/2025 BMI 24 kg/m2 04/28/2025 Encounters Encounter Location Date Provider Diagnosis [facility] [place] ([address]) [address] [place] [phone] 04/28/2025 Himanshu Bolton Chronic fatigue, unspecified R53.82 ; Abnormal weight gain R63.5 ; Other fatigue R53.83 and Other malaise R53.81 Assessments Encounter Date Diagnosis (ICD Code) Assessment Notes Treatment Notes Treatment Clinical Notes Section Notes 04/28/2025 Chronic fatigue, unspecified (ICD-10 - R53.82) 04/28/2025 Abnormal weight gain (ICD-10 - R63.5) 04/28/2025 Other fatigue (ICD-10 - R53.83) 04/28/2025 Other malaise (ICD-10 - R53.81) Plan Of Treatment Next Appt Details Follow Up: 1 Week, Reason: G LP-1 Agonist Administration Provider Name:Himanshu Bolton , 06/19/2025 04:00:00 PM, [address], [address], [place], [address], Provider Name:Himanshu Caldwell Hoang , 07/09/2025 04:00:00 PM, [address], [address], [place], [address], Procedure Notes * Category Sub-Category Detail Notes [facility]: Weight Management tirzepatide Indication: main tenance (keep weight off) Concentration: 10 mg/mL Volume Administered: 0.4 mL Dose Administered: 4 mg Route: SQ Location: Right abdomen Frequency: weekly Lot Number/Expiration: Medication Source: [facility] Adverse Reaction: None Progress Notes * Dain SMALLB:1990 ( 34 yo F)Acc No.[id number]:04/28/2025 Weight Loss Patient: Stacey SHANNON Provider: Carlos A Bolton MD :1990 A ge:34 Y S ex:Female Date:04/28/2025 Address:[address] [place] [address] Subjective: * Chief Complaints: * 1 . [facility], on Tirzepatide, no side effects, starting weekly doses, adequate appetite suppression. 2. Desired weight loss: 30-35 lbs, +2.9 lbs change since last visit, -26.2 lbs [...] * Vitals: H t: 65.4 in, Wt: 146.0 lbs, BMI:24Index. Assessment: * Assessment: 1. A bnormal weight [...] F requency w eekly L ot Number/Expiration M edication Source H [facility] A dverse Reaction N one * Follow Up: 1 Week (Reason: GLP-1 Agonist Administration) * Billing Information: * Visit Code: * Procedure Codes: 61192 [facility] - Weekly (tirzepatide) (0.5-5 mg) Tier 1. * Electronic signature of Quinten Bolton MD, FAAAAI on 06/09/2025 at 06:51 AM CDT Sign off status: Pending * Provider: Carlos A Bolton MD Date: 0 04/28/2025 Generated for Juan oro/Victorina/eTransmitting on: 1 06:51 AM CDT
--- OUTSIDE RECORDS SUMMARY | 2025-05-19 11:00 | XMS_ITS ---
Author Organization [facility] [place] ([address]) Address [address] [place] [address] Care Team Providers Care Job Placement Specialist Name Role Phone HoangHimanshu [phone] REASON FOR VISIT [facility], [...] Search* Active Vital Signs Height 65.4 in 05/19/2025 Encounters Encounter Location Date Provider Diagnosis [facility] [place] ([address]) [address] [place] [address] 05/19/2025 Himanshu Bolton Chronic fatigue, unspecified R53.82 ; Abnormal weight gain R63.5 ; Other fatigue R53.83 and Other malaise R53.81 Assessments Encounter Date Diagnosis (ICD Code) Assessment Notes Treatment Notes Treatment Clinical Notes Section Notes 05/19/2025 Chronic fatigue, unspecified (ICD-10 - R53.82) 05/19/2025 Abnormal weight gain (ICD-10 - R63.5) 05/19/2025 Other fatigue (ICD-10 - R53.83) 05/19/2025 Other malaise (ICD-10 - R53.81) Plan Of Treatment Next Appt Details Follow Up: 1 Week, Reason: G LP-1 Agonist Administration Provider Name:Himanshu Bolton , 06/19/2025 04:00:00 PM, [address], [address], [place], [address], Provider Name:Himanshu Caldwell Hoang , 07/09/2025 04:00:00 PM, [address], [address], [place], [address], Procedure Notes * Category Sub-Category Detail Notes [facility]: Weight Management tirzepatide Indication: main tenance (keep weight off) Concentration: 10 mg/mL Volume Administered: 0.4 mL Dose Administered: 4 mg Route: SQ Location: Right abdomen Frequency: weekly Lot Number/Expiration: Medication Source: [facility] Adverse Reaction: None Progress Notes * Dain SMALLB:1990 ( 34 yo F)Acc No.[id number]:05/19/2025 Weight Loss Patient: Stacey SHANNON Provider: Carlos A Bolton MD :1990 A ge:34 Y S ex:Female Date:05/19/2025 Address:[address] [place] [address] Subjective: * Chief Complaints: * 1 . [...] day Objective: * Vitals: H t: 65.4 in. Assessment: * Assessment: 1. A bnormal weight [...] L ot Number/Expiration M edication Source [facility] A dverse Reaction N one * Follow Up: 1 Week (Reason: GLP-1 Agonist Administration) * Billing Information: * Visit Code: * Procedure Codes: 22413 Quell - Weekly (tirzepatide) (0.5-5 mg) Tier 1. * Electronic signature of Quinten Bolton MD, FAAAAI on 06/09/2025 at 06:51 AM CDT Sign off status: Pending * Provider: Carlos A Bolton MD Date: 0 05/19/2025 Generated for Juan oro/Victorina/Rosana on: 1 06:51 AM CDT
--- OUTSIDE RECORDS SUMMARY | 2025-06-05 11:00 | XMS_ITS ---
Author Organization [employer] [facility] [place] ([address]) Address [address] [place] [phone] Care Team Providers Care Customer Contact Specialist Name Role Phone HoangHimanshu [phone] REASON FOR VISIT [facility], on Tirzepatide, no side effects, starting weekly doses, adequate appetite suppression, Desired weight loss: 30-35 lbs, +2.7 lbs change since last visit, -23.5 lbs total, Nohistory MTC or MEN2 or [...] Search* Active Vital Signs Height 65.4 in 06/05/2025 Weight 148.7 lbs 06/05/2025 BMI 24.44 kg/m2 06/05/2025 Encounters Encounter Location Date Provider Diagnosis [facility] [employer] [place] ([address]) [address] [place] [phone] 06/05/2025 Himanshu Bolton Chronic fatigue, unspecified R53.82 ; Abnormal weight gain R63.5 ; Other fatigue R53.83 and Other malaise R53.81 Assessments Encounter Date Diagnosis (ICD Code) Assessment Notes Treatment Notes Treatment Clinical Notes Section Notes 06/05/2025 Chronic fatigue, unspecified (ICD-10 - R53.82) 06/05/2025 Abnormal weight gain (ICD-10 - R63.5) 06/05/2025 Other fatigue (ICD-10 - R53.83) 06/05/2025 Other malaise (ICD-10 - R53.81) Plan Of Treatment Next Appt Details Follow Up: 1 Week, Reason: G LP-1 Agonist Administration Provider Name:Himanshu Bolton , 06/19/2025 04:00:00 PM, [address], [address], [place], [address], Provider Name:Himanshu Caldwell Hoang , 07/09/2025 04:00:00 PM, [address], [address], [place], [address], Procedure Notes * Category Sub-Category Detail Notes Quell: Weight Management tirzepatide Indication: main tenance (keep weight off) Concentration: 10 mg/mL Volume Administered: 0.4 mL Dose Administered: 4 mg Route: SQ Location: Right abdomen Frequency: weekly Lot Number/Expiration: Medication Source: [facility] Adverse Reaction: None Progress Notes * Dain KINNEYB:1990 ( 34 yo F)Acc No.[id number]:06/05/2025 Weight Loss Patient: Stacey SHANNON Provider: Carlos A Bolton MD :1990 A ge:34 Y S ex:Female Date:06/05/2025 Address:[address] [place], [place] [id number] Subjective: * Chief Complaints: * 1 . [facility], on Tirzepatide, no side effects, starting weekly doses, adequate appetite suppression. 2. Desired weight loss: 30-35 lbs, +2.7 lbs change since last visit, -23.5 lbs total. 3. No history MTC or [...] * Vitals: H t: 65.4 in, Wt: 148.7 lbs, BMI:24.44Index. Assessment: * Assessment: 1. A bnormal weight [...] eekly L ot Number/Expiration M edication Source A [facility] A dverse Reaction N one * Follow Up: 1 Week (Reason: GLP-1 Agonist Administration) * Billing Information: * Visit Code: * Procedure Codes: 64323 Quell - Weekly (tirzepatide) (0.5-5 mg) Tier 1. * Electronic signature of Patcyn Bolton MD, FAAAAI on 06/09/2025 at 06:53 AM CDT Sign off status: Pending * Provider: Carlos A Bolton MD Date: Generated for Juan oro/Victorina/eTbuffy on: 06:53 AM CDT
--- OUTSIDE RECORDS SUMMARY | 2025-06-06 02:41 | XMS_ITS | Continuity of Care Document ---
Author Organization [facility] Address [address] [place] [address] [address] [place] [address] Phone Care Team Providers Care Systems Manager Name Role Phone No Information Unavailable Unavailable Advance Directives Directive Yes / No Effective Date File Name No Information Encounters Encounter Description Practice Location Reason(s) For Visit Diagnoses Date Provider Providers Copied on Encounter [facility] [place], [place], [id number], [place] tel:[phone] No Information No Information Family History Family Member Type Diagnosis Age At Onset No Information Payers Payer name Insurance type Covered libertarian ID Authoriza tion(s) No Information Social History Type Description Quantity Date Captured Comments Sex Female Smoking Status No Information Chief Complaint And Reason For Visit No Information Reason For Referral Reason For Referral No Information Plan Of Treatment Date Type Action Status Appointment Stacey Kinney BOOKED History Of Present Illness Encounter Date Complaint History Of Prese nt Illness No Information Functional Status Date Functional Assessmen t No Information Instructions Date Instruction Additional Infor mation No Information Assessments Type Assessment Date No Information Patient Care Teams Name Effective Dates (start - stop) Status Members No Information
--- NOTE | ~2025-06-09 | MR_ITS ---
EXAMINATION: MR IAC wo/w con DATE: 06/09/2025 07:40 INDICATION: Other specified hearing loss, bilateral. TECHNIQUE: Magnetic resonance imaging (MRI) of the brain, brainstem, and internal auditory canals was performed without and with 13 mL MultiHance intravenous contrast. COMPARISON: None. FINDINGS: There is no intracranial hemorrhage, acute infarction, or abnormal intracranial mass lesion. The ventricles are normal in size. The paranasal sinuses are clear. The orbits are normal. The internal auditory canals, inner ears, tympanic cavities, and mastoid air cells are normal. IMPRESSION: 1. Normal brain. Reviewed, dictated and finalized at location E. IMPRESSION: 1. Normal brain.
--- OUTSIDE RECORDS SUMMARY | 2025-06-09 06:51 | XMS_ITS | Clinical Summary ---
Author Organization [facility] [employer] Address [address] [place] [address] Care Team Providers Care Director Title Name Role Phone Eliel Wray MD Primary Care Provider [phone] Source Comments [facility] [employer],non-owned Affiliates and Associated Physician Practices is amultiple site organization consisting of ambulatory clinics and hospital sitesin [place], [place], [place] and [place]. This disclosure is being madepursuant to the Care Everywhere program and may not contain all information available regarding this patient. Last updated 18.[facility] [employer] Allergies No known active allergies Medications * Be aware that medications may not be up to date on this document. Alwaysverify current medications with the patient. sertraline (Zoloft) 50 MG tablet Take 1 (one) tablet by mouth once daily Active tirzepatide (Mounjaro) 2.5 MG/0.5ML injection Inject 2.5 (two and one-half) mg subcutaneously Active fexofenadine (Majo) 60 MG tablet Take 1 (one) tablet by mouth 2 times daily Active fluticasone propionate (Flonase) 50 MCG/ACT nasal spray [place] 2 (two) sprays into each nostril Active SUMAtriptan (Imitrex) 50 MG tabletIndicati ons:Tension headache,Atypi yonatan facial pain,Vestibula r migraine 1 tablet at the onset of migraine; may repeat after 2 hours once in a 24 hour period if needed 9 tablet 5 5 Active gabapentin (Neurontin) 100 MG capsuleIndicat ions:Sinus headache,Tensi on headache,Atypi yonatan facial pain,Vestibula r migraine Take 2 (two) capsules by mouth at bedtime 60 capsule 4 Active Active Problems Problem Noted Date Diagnosed Date Abnormal weight gain 05/08/2025 Acne vulgaris 05/08/2025 Acute non-recurrent maxillary sinusitis 05/08/20 Chronic anxiety 05/08/2025 Chronic neck pain 05/08/2025 Exposure to COVID-19 virus 05/08/2025 Chronic fatigue syndrome 05/08/2025 Malaise 05/08/2025 Morbid obesity 05/08/2025 (normal spontaneous vaginal delivery) 05/08 Tension headache, chronic 05/08/2025 Viral infection 05/08/2025 Vitamin B12 deficiency anemia 05/08/2025 Vitamin D deficiency, unspecified 05/08/2025 Encounters Date Type Department Care Team Description 06/02/2025 8:30 AM CDT Office Visit [facility] - Orthopedics [address] [place] [phone] Raven Su PA-C Cervical paraspinal muscle spasm (Primary Dx); Cervicalgia 06/02/2025 8:25 AM CDT - 06/02/2025 11:59 PM CDT Hospital Encounter [facility] [address] [place] [address] Raven Su PA-C Discharge Disposition: Home or Self Care 06/02/2025 Travel 05/29/2025 Orders Only [facility] - Orthopedics [address] [place] [phone] Raven Su PA-C Neck pain 05/08/2025 9:00 AM CDT Office Visit [facility] - Neurology [address] [place] [phone] Carlos Eduardo Conde, [employer] POLICE OFFICER-NURSING OFFICER Vestibular migraine (Primary Dx); Sinus headache; Tension headache; Atypical facial pain; Cervicalgia 05/08/2025 Travel 03/12/2025 Travel from Last 3 Months Immunizations Immunization Administration Dates Next Due HEP A VACCINE, ADULT 11/25/2013 HEP B VACCINE 04/07/1999 HEP B VACCINE, PED/ADOL 12/01/1998,09/02/1998 HIB VACCINE 01/26/1990,03/09/1989,1988 ,1988 MMR 07/02/1992,12/29/1989 TDAP (7yrs+) 02/29/2012 Social History Tobacco Use Types Packs/Day Years Used Date Smoking Tobacco: Never Smokeless Tobacco: Never Tobacco Cessation:Counseling Given: Not Answered Alcohol Use Standard Drinks/Week Comments Yes 0 (1 standard drink = 0.6 oz pur e alcohol) PHQ-2 Answer Date Recorded Patient Health Questionnaire-2 Score 2 05/26/2025 Comments Unknown Sex and Gender Information Value Date Recorded Sex Assigned at Not on file Legal Sex Female 8:57 AM SHOT COAT TENDER Gender Identity Not on file Sexual Orientation Not on file Last Filed Vital Signs Vital Sign Reading Time Taken Comments Blood Pressure 128/73 05/08/2025 9:06 AM CDT Pulse 57 05/08/2025 9:06 AM CDT Temperature - - Respiratory Rate - - Oxygen Saturation 99% 05/08/2025 9:06 AM CDT Inhaled Oxygen Concentration - - Weight 67.6 kg (149 lb) 06/02/2025 8:40 AM CDT Height 165.1 cm (5' 5) 05/08/2025 9:06 AM CDT Body Mass Index 24.79 05/08/2025 9:06 AM CDT Plan of Treatment Upcoming Encounters Date Type Department Care Team (Late st Contact Info) Description 08/25/2025 9:15 AM SHOT COAT TENDER [facility] [address] [place] [phone] Raven Su, PARjC [address] [place] [phone] 09/08/2025 4:00 PM SHOT COAT TENDER Video Visit [facility] - Neurology [address] [place] [phone] Carlos Eduardo Conde, [employer] POLICE OFFICER-NURSING OFFICER [address] [place] [address] Health Maintenance Due Date Last Done Comments HIV SCREENING 2003 HEPATITIS C SCREENING 07/14/2006 HPV VACCINE (1 - 3-dose SCDM series) 2015 PAP SMEAR 08/24/2020 08/24/2017 DTAP/TDAP/TD VACCINES (2 - Td or Tdap) 02/28/2022 02/29/2012 COVID-19 VACCINE ( season) 2025 INFLUENZA VACCINE (#1) 2025 ZOSTER VACCINE (1 of 2) 2038 HIB VACCINE Completed 01/26/1990, 02/1989, 1988, Additional history exists HEPATITIS B VACCINE Completed 04/07/1999, 12/01/1998, 09/02/1998 DEPRESSION SCREENING Completed 06/02/2025 MENINGOCOCCAL (Group B) VACCINE SHARED DECISION-MAKING Aged Out No longer eligible based on patient's age to complete this topic MENINGOCOCCAL GROUPS A/C/Y/W VACCINE Aged Out No longer eligible based on patient's age to complete this topic PNEUMOCOCCAL VACCINE Aged Out No long er eligible based on patient's age to complete this topic Procedures Procedure Name Priority Date/Time Associated Diagnosis Comments XR CERVICAL SPINE 2 OR 3VW Routine 06/02/2025 8:31 AM CDT Neck pain from Last 3 Months Results * XR Cervical Spine 2 or 3Vw (06/02/2025 8:31 AM CDT) Anatomical Region Laterality Modality Spine Radiographic Misti ging 06/02/2025 9:03 AM CDT Impressions 06/02/2025 9:22 AM CDT IMPRESSION: Normal cervical spine radiograph. Report dictated by Mynor Blair MD, (radiology transcriptionist). > Dictated by Inker Machine I, Rogelio George MD have personally reviewed and interpreted this examination/study. > Interpreting Provider: Rogelio George MD on 06/02/2025 9:22 AM Narrative 06/02/2025 9:22 AM CDT PROCEDURE: XR CERVICAL SPINE 2 OR 3VW, DATE/TIME OF EXAM: 06/02/2025 8:31 AM, LOCATION [facility] INDICATION: M54.2: Neck pain ADDITIONAL CLINICAL INFORMATION: Ordering Provider Reason For Exam: neck pain Technologist Note: Additional: COMPARISON: None. FINDINGS: There is straightening of the normal cervical lordosis. The vertebral bodies are normally aligned. No acute fracture or compression deformity is identified. The intervertebral disc spaces are maintained. The predental interval and prevertebral soft tissues are normal. Bone density and texture are normal. Procedure Note Rogelio George MD - 06/02/2025 PROCEDURE: XR CERVICAL SPINE 2 OR 3VW, DATE/TIME OF EXAM: 58:31 AM, LOCATION [facility] INDICATION: M54.2: Neck pain ADDITIONAL CLINICAL INFORMATION: Ordering Provider Reason For Exam: neck pain Technologist Note: Additional: COMPARISON: None. FINDINGS: There is straightening of the normal cervical lordosis. The vertebral bodies are normally aligned. No acute fracture or compression deformityis identified. The intervertebral disc spaces are maintained. The predental interval and prevertebral soft tissues are normal. Bone density andtexture are normal. IMPRESSION: Normal cervical spine radiograph. Report dictated by Mynor Blair MD, (radiology transcriptionist). > Dictated by Inker Machine I, Rogelio George MD have personally reviewed and interpreted this examination/study. > Interpreting Provider: Rogelio George MD on 06/02/2025 9:22 AM Raven Su PA-C DIAGNOSTIC IMAGING ORDERABL ES Final Result from Last 3 Months Insurance JENNIFER Care Teams Director Title Relationship Specialty Start Date End Date Eliel Wray MD [address] [place] [address] PCP - General 09/14/21
--- OUTSIDE RECORDS SUMMARY | 2025-06-09 06:51 | XMS_ITS | Patient Health Record ---
Author Organization [facility] ([address]) Address [address] [place] [phone] Care Team Providers Care Hazmat Cdl Driver Name Role Phone HoangHimanshu Armaan [phone] Allergies No Known Allergies Reason For Referral No Information Medications Medication SIG (Take, Route, Frequency, Duration) Notes Start Date End Date Status Sertraline HCl 50 MG 1 tab(s) orally once a day Active Vitamin D3 10 MCG 2 TAB(S) ORALLY ONCE A DAY *Please review and pick correct strength-formulation from [employer] options. If intended option is not shown, discontinue and re-order from Quick Search* Active Problems Problem Type SNOMED Code ICD Code Onset Dates Problem Status W/U Status Risk Notes Problem Morbid obesity (disorder) (336527284) Morbid (severe) obesity due to excess calories (E66.01) Active confirmed Problem Malaise (996709634) Other malaise (R53.81) Active confirmed Problem Chronic fatigue syndrome (disorder) (88303206) Chronic fatigue, unspecified (R53.82) Active confirmed Problem Fatigue (06817628) Other fatigue (R53.83) Active confirmed Problem Abnormal weight gain (852298639) Abnormal weight gain (R63.5) Active confirmed Vital Signs Height 65.4 in 06/05/2025 Weight 148.7 lbs 06/05/2025 BMI 24.44 kg/m2 06/05/2025 Encounters Encounter Location Date Provider Diagnosis [facility] [facility] ([address]) [address] [place] [phone] 11/06/2024 Himanshu Bolton Chronic fatigue, unspecified R53.82 ; Abnormal weight gain R63.5 ; Other fatigue R53.83 and Other malaise R53.81 [facility] ([address]) [address] [place] [address] 09/19/2024 Himanshukatelynn Bolton Chronic fatigue, unspecified R53.82 ; Abnormal weight gain R63.5 ; Other fatigue R53.83 and Other malaise R53.81 [facility] ([address]) [address] [place] [address] 09/05/2024 Himanshukatelynn Bolton Chronic fatigue, unspecified R53.82 ; Abnormal weight gain R63.5 ; Other fatigue R53.83 and Other malaise R53.81 [facility] ([address]) [address] [place] [address] 08/22/2024 Himanshu Hoang Chronic fatigue, unspecified R53.82 ; Abnormal weight gain R63.5 ; Other fatigue R53.83 and Other malaise R53.81 [facility] ([address]) [address] [place] [address] 08/22/2024 Himanshu Bolton [facility] ([address]) [address] [place] [address] 08/22/2024 Himanshu Bolton [facility] ([address]) [address] [place] [address] 07/08/2024 Himanshu Hoang Chronic fatigue, unspecified R53.82 ; Abnormal weight gain R63.5 ; Other fatigue R53.83 and Other malaise R53.81 [facility] ([address]) [address] [place] [address] 06/20/2024 Himanshu Hoang Chronic fatigue, unspecified R53.82 ; Abnormal weight gain R63.5 ; Other fatigue R53.83 and Other malaise R53.81 [facility] ([address]) [address] [place] [address] 04/08/2025 Himanshukatelynn Bolton Chronic fatigue, unspecified R53.82 ; Abnormal weight gain R63.5 ; Other fatigue R53.83 and Other malaise R53.81 [facility] ([address]) [address] [place] [address] 08/14/2024 Himanshu Win Chronic fatigue, unspecified R53.82 ; Abnormal weight gain R63.5 ; Other fatigue R53.83 and Other malaise R53.81 [facility] [place] ([address]) [address] [place] [address] 07/31/2024 Himanshukatelynn Bolton Chronic fatigue, unspecified R53.82 ; Abnormal weight gain R63.5 ; Other fatigue R53.83 and Other malaise R53.81 [facility] [place] ([address]) [address] [place] [address] 2024 Himanshu Bolton Chronic fatigue, unspecified R53.82 ; Abnormal weight gain R63.5 ; Other fatigue R53.83 and Other malaise R53.81 [facility] [place] ([address]) [address] [place] [address] 06/05/2025 Himanshu Bolton Chronic fatigue, unspecified R53.82 ; Abnormal weight gain R63.5 ; Other fatigue R53.83 and Other malaise R53.81 [facility] [place] ([address]) [address] [place] [address] 05/19/2025 Himanshu Bolton Chronic fatigue, unspecified R53.82 ; Abnormal weight gain R63.5 ; Other fatigue R53.83 and Other malaise R53.81 [facility] [place] ([address]) [address] [place] [address] 04/28/2025 Himanshu Bolton Chronic fatigue, unspecified R53.82 ; Abnormal weight gain R63.5 ; Other fatigue R53.83 and Other malaise R53.81 [facility] ([address]) [address] [place] [address] 03/25/2025 Himanshukatelynn Bolton Chronic fatigue, unspecified R53.82 ; Abnormal weight gain R63.5 ; Other fatigue R53.83 and Other malaise R53.81 [facility] ([address]) [address] [place] [address] 03/03/2025 Himanshukatelynn Bolton Chronic fatigue, unspecified R53.82 ; Abnormal weight gain R63.5 ; Other fatigue R53.83 and Other malaise R53.81 [facility] ([address]) [address] [place] [address] 02/17/2025 Himanshu Hoang Chronic fatigue, unspecified R53.82 ; Abnormal weight gain R63.5 ; Other fatigue R53.83 and Other malaise R53.81 [facility] ([address]) [address] [place] [address] 02/03/2025 Himanshu Hoang Chronic fatigue, unspecified R53.82 ; Abnormal weight gain R63.5 ; Other fatigue R53.83 and Other malaise R53.81 [facility] ([address]) [address] [place] [phone] 01/16/2025 Himanshukatelynn Bolton Chronic fatigue, unspecified R53.82 ; Abnormal weight gain R63.5 ; Other fatigue R53.83 and Other malaise R53.81 [facility] ([address]) [address] [place] [address] 01/02/2025 Himanshu Win Chronic fatigue, unspecified R53.82 ; Abnormal weight gain R63.5 ; Other fatigue R53.83 and Other malaise R53.81 [facility] ([address]) [address] [place] [address] 12/19/2024 Himanshukatelynn Bolton Chronic fatigue, unspecified R53.82 ; Abnormal weight gain R63.5 ; Other fatigue R53.83 and Other malaise R53.81 [facility] ([address]) [address] [place] [address] 12/12/2024 Himanshu Bolton Chronic fatigue, unspecified R53.82 ; Abnormal weight gain R63.5 ; Other fatigue R53.83 and Other malaise R53.81 [facility] [place] ([address]) [address] [place] [phone] 12/05/2024 Himanshu Bolton Chronic fatigue, unspecified R53.82 ; Abnormal weight gain R63.5 ; Other fatigue R53.83 and Other malaise R53.81 [facility] ([address]) [address] [place] [phone] 04/08/2025 Himanshu Bolton [facility] ([address]) [address] [place] [phone] 11/06/2024 [facility]anshu Bolton [facility] [address] [place] [phone] 11/14/2024 Himanshu Bolton Chronic fatigue, unspecified R53.82 ; Abnormal weight gain R63.5 ; Other fatigue R53.83 and Other malaise R53.81 Assessments Encounter Date Diagnosis (ICD Code) Assessment Notes Treatment Notes Treatment Clinical Notes Section Notes 06/20/2024 Chronic fatigue, unspecified (ICD-10 - R53.82) [...] 03/03/2025 Abnormal weight gain (ICD-10 - R63.5) 03/25/2025 Chronic fatigue, unspecified (ICD-10 - R53.82) 03/25/2025 Abnormal weight gain (ICD-10 - R63.5) 04/08/2025 Chronic fatigue, unspecified (ICD-10 - R53.82) 04/08/2025 Abnormal weight gain (ICD-10 - R63.5) 04/28/2025 Chronic fatigue, unspecified (ICD-10 - R53.82) 04/28/2025 Abnormal weight gain (ICD-10 - R63.5) 05/19/2025 Chronic fatigue, unspecified (ICD-10 - R53.82) 05/19/2025 Abnormal weight gain (ICD-10 - R63.5) 06/05/2025 Chronic fatigue, unspecified (ICD-10 - R53.82) 06/05/2025 Abnormal weight gain (ICD-10 - R63.5) 06/05/2025 Other fatigue (ICD-10 - R53.83) 05/19/2025 Other fatigue (ICD-10 - R53.83) 04/28/2025 Other fatigue (ICD-10 - R53.83) 04/08/2025 Other fatigue (ICD-10 - R53.83) 03/25/2025 Other fatigue (ICD-10 - R53.83) 03/03/2025 Other fatigue (ICD-10 - R53.83) 02/17/2025 [...] R53.83) 06/20/2024 Other fatigue (ICD-10 - R53.83) 06/20/2024 Other malaise (ICD-10 - R53.81) 07/08/2024 [...] R53.81) 03/03/2025 Other malaise (ICD-10 - R53.81) 03/25/2025 Other malaise (ICD-10 - R53.81) 04/08/2025 Other malaise (ICD-10 - R53.81) 04/28/2025 Other malaise (ICD-10 - R53.81) 05/19/2025 Other malaise (ICD-10 - R53.81) 06/05/2025 Other malaise (ICD-10 - R53.81) Plan Of Treatment Next Appt Details Provider Name:Himanshu Bolton , 06/19/2025 04:00:00 PM, [address] [place] [address], [place], [address], Provider Name:Himanshu Bolton , 07/09/2025 04:00:00 PM, [address] [facility] [address], [place], [address],
== END 2025-06-09 06:48 | disposition home or self-care (01) ==
PROVIDERS: PCP Family Medicine; Visit Provider Otolaryngology
DX: H91.8X3 Other specified hearing loss, bilateral (principal); H93.11 Tinnitus, right ear; H91.91 Unspecified hearing loss, right ear
CPT/HCPCS: 70553; A9577